=== PATIENT | female | born 1970 | race American Indian/Alaskan Native ===

== ENCOUNTER 2017-03-08 08:00 | Inpatient (IN) | payer OTHER ==
[2017-04-01 08:45] LABS: Eosinophils % (Auto) 6.7 % (0.0-4.3); Hematocrit 40.9 % (30.3-42.9); Hemoglobin 13.5 gm/dl (10.1-14.3); Mean Corpuscular HGB Conc 33 % (30-34); Mean Corpuscular Hemoglobin 31 pg (28-32); Mean Corpuscular Volume 92 fl (79-97); Platelet Count 280 K/mm3 (140-440); Red Blood Count 4.43 M/mm3 (3.65-5.03); White Blood Count 7.2 K/mm3 (4.5-11.0)
[2017-04-01 08:56] LABS: INR 0.95 (0.87-1.13)
[2017-04-01 09:01] LABS: Alanine Aminotransferase 11 units/L (7-56); Albumin 3.9 g/dL (3.9-5); Albumin/Globulin Ratio 1.1 %; Alkaline Phosphatase 80 units/L (35-129); Anion Gap 17 mmol/L; BUN/Creatinine Ratio 14.44; Blood Urea Nitrogen 13 mg/dL (7-17); Calcium 9.4 mg/dL (8.4-10.2); Carbon Dioxide 28 mmol/L (22-30); Chloride 102.5 mmol/L (98-107); Glucose 75 mg/dL (65-100); Partial Thromboplastin Time 28.6 Sec. (24.2-36.6); Potassium 4.3 mmol/L (3.6-5.0); Sodium 143 mmol/L (137-145); Total Protein 7.3 g/dL (6.3-8.2)
--- NOTE | 2017-04-01 12:50 | Anesthesia Consultation ---
Anesthesia Consult and Med Hx Date of service: 04/01/17 - Airway Anesthetic Teeth Evaluation: Good (some missing) ROM Head & Neck: Adequate Mental/Hyoid Distance: Adequate Mallampati Class: Class II Intubation Access Assessment: Probably Good - Pulmonary Exam CTA: Yes - Cardiac Exam Cardiac Exam: RRR - Pre-Operative Health Status ASA Pre-Surgery Classification: ASA3 Proposed Anesthetic Plan: General (no previous anesthesia problems - pt snxious about waking up - use of BIS moniter), TIVA - Pulmonary Hx Smoking: No Hx Asthma: Yes (inhaler used 2 yrs ago) Hx Sleep Apnea: Yes - Cardiovascular System Hx Hypertension: Yes (will take beta rasheed night before surgery) - Central Nervous System Hx Back Pain: Yes (including neck - has pain patch will have on on arrival - remove in pre-op) Hx Psychiatric Problems: No (anxiety) - Gastrointestinal Hx Gastroesophageal Reflux Disease: Yes (will take nexium night before surgery ) - Hematic Hx Anemia: Yes - Other Systems Hx Alcohol Use: No Hx Substance Use: No Hx Cancer: No Hx Obesity: No (hx gastric bypass)
[2017-04-05] MEDS ORDERED: LACTATED RINGERS 1,000 ML IV SCH (00:01)
[2017-04-05] MEDS ORDERED: NACL BACTERIOSTATIC INFILTRATI ONE (06:42)
[2017-04-05] MEDS ORDERED: VERSED IV NR (07:00)
[2017-04-05] MEDS ORDERED: PEPCID IV NR (07:00)
[2017-04-05] MEDS ORDERED: DIPRIVAN 10 MG/ML IV ONE ×6 (07:08→10:32)
[2017-04-05] MEDS ORDERED: DECADRON ONE (07:08)
[2017-04-05] MEDS ORDERED: ZOFRAN ONE (07:08)
[2017-04-05] MEDS ORDERED: ZEMURON IV ONE (07:08)
[2017-04-05] MEDS ORDERED: XYLOCAINE MPF 2% ONE (07:08)
[2017-04-05] MEDS ORDERED: DILAUDID ONE (07:10)
[2017-04-05] MEDS ORDERED: TRANSDERM-SCOP TD NR (07:18)
[2017-04-05] MEDS ORDERED: QUELICIN ONE (07:25)
--- NOTE | 2017-04-05 07:36 | Anesthesia Day of Surgery ---
Anesthesia Day of Surgery - Day of Surgery Patient Examined: Yes Patient H&P Reviewed: Yes Patient is NPO: Yes Beta Blockers: Yes
[2017-04-05] MEDS ORDERED: BACITRACIN ONE (07:38)
[2017-04-05] MEDS ORDERED: NACL 0.9% 250ML 250 ML ONE (07:39)
[2017-04-05] MEDS ORDERED: NACL P/F VIAL (10 ML) 10 ML ONE (07:39)
[2017-04-05] MEDS ORDERED: THROMBIN (BOVINE) TP ONE ×3 (07:40→10:51)
[2017-04-05] MEDS ORDERED: MARCAINE 0.5% 0 ML INFILTRATI ONE (07:41)
[2017-04-05] MEDS ORDERED: GELFOAM TP ONE ×3 (07:41→10:51)
[2017-04-05] MEDS ORDERED: XYLOCAINE 0.5%/ EPI 1:200,000 INFILTRATI ONE (07:58)
[2017-04-05] MEDS ORDERED: VERSED IV ONE ×3 (08:42→10:32)
[2017-04-05] MEDS ORDERED: NACL 0.9% 1000 ML 1,000 ML ONE ×2 (09:00→11:03)
[2017-04-05] MEDS ORDERED: XYLOCAINE 2%/EPI 1:100,000 INFILTRATI ONE (09:00)
[2017-04-05] MEDS ORDERED: ANCEF/STERILE WATER 2 GM/20 ML IV NR (09:00)
[2017-04-05] MEDS ORDERED: NACL 0.9% 250ML IV ONE ×2 (09:10→09:14)
[2017-04-05] MEDS ORDERED: NACL 0.9% IR ONE ×2 (09:11)
[2017-04-05] MEDS ORDERED: NACL P/F VIAL (10 ML) IV ONE ×2 (09:11)
[2017-04-05] MEDS ORDERED: BACITRACIN IR ONE (09:11)
[2017-04-05] MEDS ORDERED: ZOFRAN IV PRN ×2 (09:30→13:31)
--- NOTE | 2017-04-05 11:00 | Admit Criteria Form ---
Admission Criteria Documentation: AMBULATORY SURGERY EXCEPTION CRITERIA Ambulatory Surgery Exception Criteria ( Place 'X' for any and all applicable criteria): Surgery or procedure performed on ambulatory basis may require inpatient stay for[A] ANY ONE of the following(1)(2)(3)(4)(5)(6)(7)(8)(9): [X] I. A preoperative situation, condition, or finding that warrants inpatient stay as indicated by ANY ONE of the following: [] a) Inpatient care needed because of severity of a disease or condition rather than the surgery (eg, severe cardiac or respiratory disease, severe infection) (15) (16 ) (17) (18) [] b) Emergent procedure (eg, angioplasty for acute ischemia)(19) [] c) Complex surgical approach or situation as indicated by ANY ONE of the following(3): [] i) Open approach needed instead of usual endoscopic, transcatheter, or other less invasive procedure [] ii) Difficult approach because of previous operation [] iii) Airway monitoring required after open neck procedures(20)(21) [] iv) Large mass requiring unusually extensive dissection [] v) Additional complicating feature requiring inpatient care (eg, drain management)(22(23): [X] d) Major surgery in a pt with high anesthetic risk as indicated by ANY ONE of the following (2)(3)(5)(7)(8): [X] i) ASA risk class III or higher (severe systemic disease impairing function) [D] [] ii) Advanced age (eg, older than 85 years)(14)(24) [] iii) Symptomatic heart failure(25) [] iv) Symptomatic asthma or COPD(8)(21) [] v) Morbid obesity with hemodynamic or respiratory problems(20)( 21)(26)(27) [] vi) Obstructive sleep apnea(20)(21) [] vii) Former premature infants who are younger than 60 weeks [] viii) High risk for severe postoperative abnormalities (eg, severe postoperative hypocalcemia after parathyroidectomy for severe hyperparathyroidism)(27)( 28) [] ix) Unstable angina(25) [] e) Drug-related risk requiring inpatient stay as indicated by ANY ONE of the following(5)(10)(14)(32)(33) [] i) Procedure requires discontinuing drugs or other therapy (eg , antiarrhythmic medication, antiseizure medication), which necessitates inpatient observation or treatment.(18)(31) [] ii) Major surgery and high risk drug use as indicated by ANY ONE of the following: [] 1) Active abuse of cocaine or similar drug [] 2) Monoamine oxidase inhibitor use [] 3) Other drug identified as posing risk [] f) Inadequate outpatient care situation as indicated by ANY ONE of the following(5)(10)(14)(32)(33) [] i) Patient lives remote from medical facility and procedure has urgent complication potential, and temporary nearby residence cannot be arranged [] ii) Patient will have postprocedure incapacitation and inadequate assistance at home, or alternative level of care cannot be arranged. [] iii) Patient will have long general anesthesia or procedure side effect resolution time, and competent person to stay with patient on first postoperative night at home or alternative level of care cannot be arranged. []iv) Other inadequate outpatient situation that cannot be handled by other means [] II. A perioperative event, condition, or finding that warrants inpatient stay as indicated by ANY ONE of the following (1)(2)(3): [] a) Inadequate physiologic recovery: cardiovascular, respiratory, or hemodynamic status not normal or near preoperative baseline(18) [] b) Hemodynamic instability [] c) Patient not alert with near normal or baseline mental status [] d) Temperature not normal or as expected and not appropriate for outpatient treatment of condition [] e) Ambulatory or appropriate activity level status not yet achieved post procedure [E](34)(35)(36) [] f) Operative site not appropriate (eg, unexpected or excessive drainage or bleeding) [] g) Postoperative effects not resolved or adequately managed (eg, significant pain or vomiting not appropriate for outpatient or next level of care)(10)(12) [] h) Complicating features requiring inpatient care as indicated by ANY ONE of the following(37): [] i) Severe complications of procedure (eg, bowel injury, airway compromise, vascular injury,severe hemorrhage) [] ii) Extensive (eg, dissection far beyond usual scope of procedure ) or prolonged (eg, 120 minutes beyond usual) surgery needed requiring inpatient postoperative care [] iii) Conversion to an open or complex procedure that requires inpatient care (eg, open vs laparoscopic cholecystectomy, abdominal vs vaginal hysterectomy)(38) [] iv) Comorbid condition or test result identified during or post procedure that requires inpatient care (7) [] v) Malignant hyperthermia(30) [] vi) Other complicating feature requiring inpatient care(22)(23) Inpatient stay may be needed until ALL of the following are present (1)(2)(3)(4) (5)(6)(10)(14)(33)(40): []a) Physiologic recovery: cardiovascular, respiratory, and hemodynamic status normal or near preoperative baseline []b) Hemodynamic stability []c) Patient alert, with near normal or baseline mental status []d) Temperature appropriate: patient afebrile or temperature appropriate for outpt treatment of condition []e) Activity level appropriate: ambulatory or appropriate activity level post procedure []f) Operative site appropriate as indicated by ALL of the following: []i) Site dry or with expected drainage []ii) Any blood noted is as expected for procedure. []g) Postoperative effects resolved or managed as indicated by ALL of the following: []i) Pain management appropriate for outpatient (or next level of) care(10) []ii) Minimal nausea and vomiting: if present, successfully treated with oral medication(12) []iii) Headache, dizziness, or drowsiness (if present) are mild. []h) Voiding status acceptable as indicated by ANY ONE of the following: []i) Voiding spontaneously []ii) No voiding but instructions given for follow-up in 6 to 8 hours []iii) Urinary catheter in place, and instructions given for follow-up []i) Complicating features requiring inpatient care manageable at a lower level of care(37) []j) Comorbid conditions manageable at a lower level of care(37) The original [employer] content created by [employer] has been revised. The portions of the content which have been revised are identified through the use of italic text or in bold, and [facility] [employer] has neither reviewed nor approved the modified material. All other unmodified content is copyright [employer]. Please see references footnoted in the original [employer] edition 2016 Admission Criteria Met: Yes
--- NOTE | 2017-04-05 11:26 | Operative Report ---
Operative Report Operative Report: DATE OF PROCEDURE: 04/05/2017 PREOPERATIVE DIAGNOSIS: cervical spondylosis with radiculopathy C5 6 and C6 7 POSTOPERATIVE DIAGNOSIS: Same OPERATIVE PROCEDURE: 1. Anterior cervical arthrodesis C5 6 and C6 7 2. Interbody biomechanical graft placement C5 6 and C6 7 SURGEON: Rimma Harrison MD GLASS SAGGER: Pema OLGUIN ANESTHESIA: General endotracheal anesthesia EBL: 100 mL INDICATIONS FOR PROCEDURE: This is a 47-year-old female who presented to the office with a chief complaint of progressively worsening upper extremity pain and numbness and weakness. Symptoms failed conservative care including physical therapy non-steroidal and injections. MRI of the cervical spine showed a large disc and osteophyte performed at C5 6 smaller disc osteophyte at C6 7. Physical exam revealed weakness of the brachial radialis on the left. Risk and benefits of surgery were explained to the patient and her who indicated they understood and wished proceed with surgery. FINDINGS: large disc and osteophyte at C5 6, central disc at C6 7. PROCEDURE: The patient was brought to the operating room and placed on the operating table in the supine position. The patient underwent general endotracheal anesthesia without complication. After all lines were placed including monitoring the right neck was prepped and draped in a sterile fashion. After an appropriate time out was taken the area of intended incision was infiltrated with 1% lidocaine with epinephrine. The skin was opened using a 10 blade and carried down to the platysma. The platysma was divided sharply and the anterior cervical strap muscles were dissected bluntly. The anterior cervical spine was approached and a self-retaining retractor was placed under the longus colli muscles. The microscope was brought into the field and the discectomy was begun by making an incision in the disc space of C5 6. The anterior aspect of the 56 disc was removed using a combination of curettes and pituitary rongeurs. The posterior aspect of the disc and osteophyte was removed using a high-speed drill and Kerrison rongeurs. The posterior longitudinal ligament was incised and the thecal sac decompressed. Bilateral foraminotomies were performed and the neural foramen were checked to ensure no remaining disc or osteophyte was present. Hemostasis was obtained and the endplates were prepared for fusion by removing the remainder of the cartilaginous portion. Biomechanical grafts were then sized packed with bone growth stimulator. The graft then placed in the interspace and secured using plates provided by [facility]. Hemostasis was obtained and the platysma was reapproximated using 3-0 Vicryl and finally 4-0 Monocryl for the skin. The anterior aspect of the C6 7 disc was removed using a combination of curettes and pituitary rongeurs. The posterior aspect of the disc and osteophyte was removed using a high-speed drill and Kerrison rongeurs. The posterior longitudinal ligament was incised and the thecal sac decompressed. Bilateral foraminotomies were performed and the neural foramen were checked to ensure no remaining disc or osteophyte was present. Hemostasis was obtained and the endplates were prepared for fusion by removing the remainder of the cartilaginous portion. Biomechanical grafts were then sized packed with bone growth stimulator. The graft then placed in the interspace and secured using plate provided by [facility]. The lap sponge and needle count was correct at the end of the procedure, the patient tolerated the procedure well and was taken to the recovery room extubated and in good condition.
[2017-04-05] MEDS: DILAUDID IV PRN ×5 (11:46→22:41)
--- NOTE | 2017-04-05 12:19 | Post Anesthesia Evaluation ---
- Post Anesthesia Evaluation Patient Participated: Yes Airway Patent: Yes Stable Respiratory Function: Yes Nausea/Vomiting: No Temp > 96.8F: Yes Pain Manageable: Yes Adequeate Hydration: Yes Anesthesia Complications: No Block Receding Appropriately: Not Applicable Patient on Ventilator: No
[2017-04-05] MEDS ORDERED: AMBIEN PO PRN (13:31)
[2017-04-05] MEDS ORDERED: REGLAN IV PRN (13:31)
[2017-04-05] MEDS ORDERED: CEPACOL X STRENGTH MM PRN (13:31)
[2017-04-05] MEDS ORDERED: PHENERGAN PR PRN (13:31)
[2017-04-05] MEDS ORDERED: NORCO 5/325 PO PRN (13:31)
[2017-04-05] MEDS ORDERED: MORPHINE IV PRN (13:31)
[2017-04-05] MEDS ORDERED: TYLENOL PO PRN (13:31)
[2017-04-05] MEDS ORDERED: NACL 0.9% 1000 ML 1,000 ML IV SCH (13:31)
[2017-04-05] MEDS ORDERED: PERCOCET 5/325 PO PRN (13:31)
[2017-04-05] MEDS ORDERED: FLEXERIL PO PRN (13:31)
--- NOTE | 2017-04-05 14:27 | XRay Report ---
CERVICAL SPINE, LATERAL VIEW: History: Cervical spondylosis. Findings: A lateral fluoroscopic image of the cervical spine was obtained prior to surgery. An endotracheal tube is in place. A metallic pointer device is noted anterior to the C5-6 disc space. Mild degenerative changes are noted at C5-6 and C6-7. No fracture or malalignment. Impression: Cervical spondylosis.
--- NOTE | 2017-04-05 14:29 | XRay Report ---
CERVICAL SPINE, 2 VIEWS History: Cervical fusion, spondylosis. Findings: AP and lateral fluoroscopic images of the cervical spine were obtained during surgery. Anterior fusion changes are suspected at C5-6 and C6-7. There is no evidence for acute fracture or malalignment. The endotracheal tube remains in good position. Impression: Stable appearance of the anterior cervical fusion changes.
[2017-04-05] MEDS: ANCEF/NS 1 GM/50 ML 1 GM/50 ML BAG IV SCH (19:23)
[2017-04-05] MEDS: COLACE PO SCH (22:25)
[2017-04-05] MEDS: PEPCID PO SCH (22:25)
[2017-04-05] MEDS: SENOKOT PO SCH (22:30)
[2017-04-06] MEDS: ANCEF/NS 1 GM/50 ML 1 GM/50 ML BAG IV SCH (02:30)
[2017-04-06] MEDS: DILAUDID IV PRN ×2 (02:51→07:10)
--- NOTE | 2017-04-06 08:11 | XRay Report ---
CERVICAL SPINE, 2 VIEWS History: Postoperative films, cervical fusion. Findings: Compared to the intraoperative films performed yesterday. Anterior fusion changes at C5-6 and C6-7 appear stable. The fusion device at C5-6 is slightly different than C6-7 and contains only one limb. Please correlate with the images. There is straightening of normal lordosis with mild degenerative disc disease. Surgical drain in the right lateral soft tissues. Impression: No acute change since the intraoperative films. Please see above.
--- NOTE | 2017-04-06 08:42 | Short Stay Summary ---
Short Stay Documentation Date of service: 04/06/17 - History H&P: obtained from office - Allergies and Medications Current Medications: Allergies shellfish derived Adverse Reaction (Verified 08/06/16 13:23) Anaphylaxis Home Medications Medication Instructions Recorded Confirmed Last Taken Type Budesoni/Formotero 160-4.5(Nf) 2 puff IH BID 08/06/16 04/05/17 04/05/17 04:30 History [Symbicort 160-4.5 (Nf)] Esomeprazole Magnesium [NexIUM] 20 mg PO QDAY 08/06/16 04/05/17 04/03/17 History Fentanyl 25 mcg TRANSDERMA Q24HR 08/06/16 04/05/17 04/05/17 History Bisoprolol/Hctz [Ziac 10-6.25] 1 each PO DAILY 03/29/17 04/05/17 04/04/17 23:15 History Pregabalin [Lyrica] 150 mg PO DAILY 03/29/17 03/29/17 04/04/17 History clonazePAM [clonazePAM] 1 tab PO BID 03/29/17 03/29/17 04/04/17 History Active Medications Acetaminophen (Tylenol) 650 mg PO Q6H PRN PRN Reason: Pain MILD(1-3)/Fever> 100.5/MELENDEZ Acetaminophen/Hydrocodone Bitart (Bucyrus 5/325) 1 each PO Q6H PRN PRN Reason: Pain, Moderate (4-6) Benzocaine/Menthol (Cepacol X Strength) 1 each MM Q1H PRN PRN Reason: Sore Throat Cyclobenzaprine HCl (Flexeril) 10 mg PO Q8H PRN PRN Reason: Muscle Spasm Docusate Sodium (Colace) 100 mg PO BID [facility] Last Admin: 04/05/17 22:25 Dose: 100 mg Famotidine (Pepcid) 20 mg PO BID [facility] Last Admin: 04/05/17 22:25 Dose: 20 mg Hydromorphone HCl (Dilaudid) 0.5 mg IV Q3H PRN PRN Reason: Pain , Severe (7-10) Last Admin: 04/06/17 07:10 Dose: 0.5 mg Sodium Chloride (Nacl 0.9% 1000 Ml) 1,000 mls @ 75 mls/hr IV DIRECT [facility] Last Admin: 04/05/17 23:38 Dose: 75 mls/hr Metoclopramide HCl (Reglan) 10 mg IV Q6H PRN PRN Reason: Nausea And Vomiting Morphine Sulfate (Morphine) 4 mg IV Q4H PRN PRN Reason: Pain , Severe (7-10) Ondansetron HCl (Zofran) 4 mg IV Q8H PRN PRN Reason: Nausea And Vomiting Oxycodone/Acetaminophen (Percocet 5/325) 1 tab PO Q6H PRN PRN Reason: Pain, Moderate (4-6) Promethazine HCl (Phenergan) 25 mg CA Q6H PRN PRN Reason: Nausea And Vomiting Senna (Senokot) 8.6 mg PO BID [facility] Last Admin: 04/05/17 22:30 Dose: Not Given Zolpidem Tartrate (Ambien) 5 mg PO QHS PRN PRN Reason: Sleep - Hospital course Hospital course: ambulating in room. tolerating po diet well. worked with PT - Disposition Condition at discharge: Good Disposition: [id number] TO HOME OR SELFCARE Short Stay Discharge Plan Activity: advance as tolerated Weight Bearing Status: Weight Bear as Tolerated Diet: regular Wound: open to air Follow up with: JIMBO PULLIAM MD [Primary Care Provider] - 7 Days ADRIANNA RYDER MD [Staff Physician] - 14 Days Prescriptions: Cyclobenzaprine [Flexeril 10 MG TAB] 10 mg PO Q8H PRN #60 tablet PRN Reason: Muscle Spasm Oxycodone HCl/Acetaminophen [Percocet 10/325 mg] 1 each PO Q6HR PRN #30 tablet PRN Reason: Pain
[2017-04-06] MEDS ORDERED: DURAGESIC TD STA (09:08)
[2017-04-06] MEDS: COLACE PO SCH (10:06)
[2017-04-06] MEDS: PEPCID PO SCH (10:06)
[2017-04-06] MEDS: SENOKOT PO SCH (10:08)
[2017-04-06 10:22] VITALS: BP 129/82
== END 2017-04-06 10:35 | disposition home or self-care (01) | DRG 473 ==
LOC: 3A 04-05 06:09 → EDSTATUS 04-05 08:00 → 2B-SURG 04-05 13:11
PROVIDERS: ADMIT Neurological Surgery; ATTEND Neurological Surgery
PROC: 0RT30ZZ Resection of Cervical Vertebral Disc, Open Approach (ICD-10-PCS; principal; 2017-04-05)
PROC: 0RG20K0 Fusion of 2 or more Cervical Vertebral Joints with Nonautologous Tissue Substitute, Anterior Approach, Anterior Column, Open Approach (ICD-10-PCS; principal; 2017-04-05)
DX: M47.22 Other spondylosis with radiculopathy, cervical region (principal); G47.30 Sleep apnea, unspecified; J45.909 Unspecified asthma, uncomplicated; I10 Essential (primary) hypertension; F41.9 Anxiety disorder, unspecified; K21.9 Gastro-esophageal reflux disease without esophagitis; Z98.84 Bariatric surgery status
CPT/HCPCS: 36415; 72020; 72040; 80053; 85025; 85610; 85730; 88304; 88311; 94760; A4649; C1713; J0330; J0690; J1100; J1170; J2250; J2405; J2704; J7030; J7050; J7120